=== PATIENT | female | born 1935 | race Caucasian/White ===

== ENCOUNTER 2017-11-15 20:42 | Observation (INO) | payer MEDICARE, OTHER ==
[2017-11-15] MEDS ORDERED: methylPREDNISolone SUCCINATE 125 MG/2 ML VIAL IVP STA (20:50)
[2017-11-15] MEDS ORDERED: diphenhydrAMINE INJ 50 MG/ML VIAL IVP STA (20:50)
--- NOTE | 2017-11-15 21:16 | ED Physician Documentation ---
PD HPI HEENT - Stated complaint Stated Complaint: SWOLLEN LIPS/TONGUE - Chief complaint Chief Complaint: Allergic Rx - History obtained from History obtained from: Patient, Friend - History of Present Illness Timing - onset: How many hours ago (4) Timing - details: Gradual onset, Still present Location: Mouth Associated symptoms: Facial swelling Similar symptoms before: Has not had sx before Recently seen: Not recently seen - Additional information Additional information: Patient is a 81 year old female with a history of htn on lisinopril who is presenting to the emergency department for tongue, face and lip swelling. patient states that the symptoms started about three hours ago. Patient called her neighbor who brought her in for evaluation. the swelling started on the right side of the face and has migrated over to the left side of the face. There is tongue involvement but no pooling of secretions. Review of Systems Constitutional: reports: Reviewed and negative Eyes: reports: Reviewed and negative Ears: reports: Reviewed and negative Throat: reports: Swollen tonsils, Other (facial and tongue swelling) Cardiac: denies: Chest pain / pressure, Palpitations Respiratory: denies: Dyspnea, Cough, Wheezing GI: denies: Nausea, Vomiting : reports: Reviewed and negative Skin: reports: Reviewed and negative Musculoskeletal: reports: Reviewed and negative Neurologic: denies: Headache Immunocompromised: denies: Immunocompromised PD PAST MEDICAL HISTORY - Past Medical History Past Medical History: Yes Cardiovascular: Hypertension, PR Other Past Medical History: dystonia - Past Surgical History Past Surgical History: Yes Cardiovascular: Coronary stent - Allergies Allergies/Adverse Reactions: Allergies Allergy/AdvReac Type Severity Reaction Status Date / Time lisinopril Allergy Edema Verified 11/15/17 20:50 - Social History Does the pt smoke?: No Smoking Status: Never smoker Does the pt drink ETOH?: Yes ETOH Use: Wine Does the pt have substance abuse?: No - Immunizations Immunizations are current?: No - POLST Patient has POLST: Yes PD ED PE NORMAL - General General: Alert and oriented X 3 - HEENT HEENT: Atraumatic, PERRL - Neck Neck: Supple, no meningeal sign - Cardiac Cardiac: RRR, No murmur - Respiratory Respiratory: No respiratory distress - Abdomen Abdomen: Soft - Derm Derm: Normal color, Warm and dry, No rash - Extremities Extremities: No deformity, No tenderness to palpate, Normal ROM s pain, No edema - Neuro Neuro: Alert and oriented X 3, No motor deficit, No sensory deficit, Normal speech Eye Opening: Spontaneous Motor: Obeys Commands Verbal: Oriented GCS Score: 15 - Psych Psych: Normal mood PD ED PE EXPANDED - HEENT HEENT: Other (swelling of upper lip and tongue. uvula partially visible) Results - Vitals Vitals: Vital Signs - 24 hr 11/15/17 11/15/17 20:44 21:12 Temperature 36.5 C Heart Rate 78 71 Respiratory 18 19 Rate Blood Pressure 173/89 H 168/81 H O2 Saturation 100 100 Oxygen O2 Source Room air - Labs Labs: Laboratory Tests 11/15/17 11/15/17 20:50 20:50 WBC 7.0 RBC 3.97 L Hgb 7.6 L Hct 24.7 L MCV 62.1 L MCH 19.1 L MCHC 30.7 L RDW 20.0 H Plt Count 342 MPV 6.9 L Manual Slide Review Indicated Sodium 121 L Potassium 4.3 Chloride 86 L Carbon Dioxide 23 Anion Gap 12.0 BUN 15 Creatinine 0.8 Estimated GFR (MDRD) 69 L Glucose 92 Calcium 9.3 PD MEDICAL DECISION MAKING - ED course Complexity details: reviewed old records, reviewed results, re-evaluated patient , considered differential, d/w patient, d/w managed services consultant ED course: Patient was seen immediately at bedside. IV access was gained. Even though the symptoms were symptoms were likely secondary to MAIDA inhibitors a trial of steroids and benadryl was given and ffp was ordered. Patient was maintaining her airway and was able to swallow her secretions. Hospitalist was contacted and the case was discussed with her. Patient was placed in observation. Departure - Departure Disposition: ED Place in Observation Clinical Impression: MAIDA inhibitor-aggravated angioedema Condition: Stable
[2017-11-15] MEDS ORDERED: HYDROcod/ACETAM 5/325 MG TABLET PO PRN (21:18)
[2017-11-15] MEDS ORDERED: ONDANSETRON ODT 4 MG TABLET TL PRN (21:18)
[2017-11-15] MEDS ORDERED: ACETAMINOPHEN 325 MG TABLET PO PRN (21:18)
[2017-11-15] MEDS ORDERED: SODIUM CHLORIDE FLUSH 0.9% 10 ML SYRINGE IVP PRN (21:18)
[2017-11-15 21:24] LABS: BASOPHILS # (AUTO) 0.1 10^3/uL (0.0-0.1); BASOPHILS % (AUTO) 1.6 %; EOSINOPHILS # (AUTO) 0.2 10^3/uL (0.0-0.7); EOSINOPHILS % (AUTO) 3.1 %; HGB - HEMOGLOBIN 7.6 g/dL (12.0-16.0); LYMPHOCYTES # (AUTO) 2.7 10^3/uL (1.5-3.5); LYMPHOCYTES % (AUTO) 38.5 %; MEAN CORPUSCULAR HEMOGLOBIN 19.1 pg (27.0-31.0); MEAN CORPUSCULAR HGB CONC 30.7 g/dL (32.0-36.0); MEAN CORPUSCULAR VOLUME 62.1 fL (81.0-99.0); MEAN PLATELET VOLUME 6.9 fL (7.9-10.8); MONOCYTES # (AUTO) 0.7 10^3/uL (0.0-1.0); MONOCYTES % (AUTO) 9.6 %; NEUTROPHILS # (AUTO) 3.3 10^3/uL (1.5-6.6); NEUTROPHILS % (AUTO) 47.2 %; PLT - PLATELET COUNT 342 10^3/uL (130-450); RED BLOOD COUNT 3.97 10^6/uL (4.20-5.40)
[2017-11-15 21:33] LABS: CALCIUM 9.3 mg/dL (8.5-10.3); CREATININE 0.8 mg/dL (0.4-1.0)
[2017-11-15 21:46] LABS: PLATELET ESTIMATE, MANUAL NORMAL (130-450,000) (NORMAL); PLATELET MORPHOLOGY NORMAL APPEARANCE (NORMAL)
[2017-11-15 22:23] LABS: MEAN RETIC VALUE 101.7; RED BLOOD COUNT 4.02 10^6/uL (4.20-5.40)
[2017-11-15] MEDS: FAMOTIDINE 20 MG TABLET PO SCH (22:27)
[2017-11-15] MEDS: SODIUM CHLORIDE FLUSH 0.9% 10 ML SYRINGE IVP SCH (22:31)
[2017-11-15 22:48] LABS: FERRITIN 12.3 ng/mL (11.0-306.8)
[2017-11-15 22:55] LABS: % IRON SATURATION 3 % (20-50); IRON 16 ug/dL (28-170); TOTAL IRON BINDING CAPACITY 500 ug/dL (250-450); TRANSFERRIN 357 mg/dL (192-382)
[2017-11-15] MEDS: amLODIPine 5 MG TABLET PO SCH (23:13)
--- NOTE | 2017-11-16 03:14 | HISTORY & PHYSICAL EXAMINATION ---
DATE OF SERVICE: Physician: Hoa Morelos MD DATE OF ADMISSION: 11/15/2017 PRIMARY CARE PROVIDER: Francisca Gonzales ADMITTING PROVIDER: Hoa Morelos MD CHIEF COMPLAINT: Swollen lips and tongue. HISTORY OF PRESENT ILLNESS: The patient is a delightful 81-year-old who still lives alone, and gets help from very good friends who live down the road. She is getting a little forgetful and they help with groceries, driving her around, but she is still independent with regard to activities of daily living, light straightener around her house, and cooking and cleaning. She has coronary artery disease, but is well maintained. She last saw her submarine advisory team watch officer 6 years ago when he put a stent in. She takes lisinopril for high blood pressure. Four hours prior to admission, she started developing lip and tongue swelling. She called her good friend, Rubén and his , and they brought her in for evaluation to the emergency room. The swelling of her lips started on the right side, and now includes all of her lips on the left side. The right side of her tongue is swollen. She says that while in the emergency room, she has actually improved a little bit, in that she could not bring her lower lip in to bring her upper teeth over it. She is now able to do so. At no time did she feel shortness of breath , inability to swallow, or drooling. She has never had any swelling of her ears, nasolabial fold, nares, or any part of her face prior to this. She has been on an MAIDA inhibitor for several years. In the emergency room, she was hypertensive, alert and oriented, with no respiratory distress. Her lips were very swollen and the right side of her tongue was involved with no respiratory compromise. Blood pressure was 173/89 initially, then down to 168/81. Although it was felt that she was having angioneurotic edema secondary to MAIDA inhibitors, she was given steroids and Benadryl, and FFP was ordered. They have not been given as of yet. We are placing her in observation because of tongue involvement. PAST MEDICAL HISTORY 1. Hypertension. 2. Coronary artery disease with MA in 1984. Return with unstable angina in 2011 to this emergency room, and she was airlifted and had a stent placed. She is followed by Colton Dhaliwal MD in [place] for this. 3. Chronic systolic congestive heart failure. 4. Dystonia. 5. G0, P0. ALLERGIES: NO KNOWN DRUG ALLERGIES UNTIL THIS LISINOPRIL TODAY. MEDICATIONS: Lisinopril 10 mg daily. SOCIAL HISTORY: She was born in [facility]. Spent the war in [place], then emmigrated to [place]. From [place], she came to the [place] in the mid . She has been twice, both husbands are . [place] She does not have good memories of [facility] because of that event. She has no history of alcohol abuse. She states that she was a social smoker and smoked probably 1 pack a month until the early . She currently lives in her own home, independent living, with help from Rubén and his who are good friends. They met one day over a decade ago when her car broke down and they helped her on her way. Code status is DO NOT RESUSCITATE/DO NOT INTUBATE. However, she asked that if she were to change her mind at the last second, would she will be allowed to do so, and I said yes. FAMILY HISTORY: Parents had emmigrated to [place] with her and of old age , but she also feels that the poor [facility] system contributed to their early demise. Although she states that she has siblings and lives in [facility], she does not believe it. She says that everyone in [facility] thinks that if you live in [place] you are rich, so there are too many relatives that claim her and she does not believe they are relatives. She has never had children. She denies any problems with high blood pressure, cancer, cholesterol , mental illness, thyroid, diabetes in her parents. REVIEW OF SYSTEMS CONSTITUTIONAL: Without any recent changes in appetite, unexpected weight changes, fevers or sweats. HEAD AND NECK: She has had a history of cataracts that have been removed. Slightly deaf. No problems with swallowing, facial dysesthesia, or dysphagia until today's episode of lip swelling. PULMONARY: Denies coughing, wheezing, asthma, allergies. CARDIAC: While she remembers having a heart attack and the stent, she initially denies having congestive heart failure, and it is her friend Rubén that gently reminds her that she carries that diagnosis. She denies any recent change in cardiovascular endurance. She is relatively sedentary. It is too hard for her to get up and down into the garden, so she is able to do things like change the sheets on her bed, 1 or 2 loads of laundry slowly, and cook for herself. She denies any change in that status. No edema. No orthopnea. No angina. No palpitations. GASTROINTESTINAL: Denies rectal bleeding, abdominal pain, change in bowel habits. GENITOURINARY: Denies urgency, frequency, dysuria, incontinence or flank pain. JOINTS: The same as always. She shrugs and says that she is stiff in the morning, and it takes a while for her to loosen up, but that is unchanged. No joint edema. No new joint pain. SKIN: Denies new rashes or lesions. PSYCHIATRIC: Denies depression, hallucinations. CENTRAL NERVOUS SYSTEM: She initially denies memory loss, but Rubén says that it is starting to happen. For instance, she says that she drove last week, and he says it has been months since she has driven. She has no history of seizures, falls, but does have quite a bit of vertigo and has to use the shields for balance. No history of strokes. PHYSICAL EXAMINATION She is seen in the emergency room with her friend, Rubén, at the bedside. VITAL SIGNS: Temperature is 36.5, pulse is 71, repeat blood pressure is 168/81 , respirations 19, and 100% on room air. GENERAL: She is a short statured, slender, elderly female who has a slight stuttering speech pattern, but is otherwise alert and cooperative. HEAD AND NECK: Remarkable for the severe edema of upper and lower lips on both sides. The right side of her tongue is quite swollen, but there is no dysphonia, no drooling, no stridor. Pupils are reactive. Sclerae are nonicteric. Neck is supple. No goiter or bruits. LUNGS: Clear to auscultation and percussion, and there is no increased respiratory effort talking to me. Again, no stridor in her neck. No crackles, rhonchi or wheezing. HEART: PMI is normally placed with a regular rate and rhythm, and a soft systolic murmur at the left lower sternal border, nonradiating. ABDOMEN: Soft, nontender. Normal bowel sounds. No rebound or guarding. No masses. EXTREMITIES: Warm without clubbing, cyanosis, or edema. She does have cankles , but not severely so. Nonpitting. Good foot pulses. NEUROLOGIC: She is oriented to person, place and time. Vague about dates, some memory issues, but otherwise very lucid. She follows 1-step commands. Need to repeat it a couple of times for her to process at the request. No tremors. Upper and lower extremity strength testing is normal in this tiny, frail, elderly female. LABORATORY DATA: Sodium is 121. She appears to have chronic hyponatremia. She was 125 in June 2014 and 126 in February 2015. Potassium is normal at 4.3, BUN 15, creatinine 0.8, random glucose 92. White cell count is 7, hemoglobin is low at 7.6. Hematocrit 24.7, MCV 62. Hemoglobin was 10 in February 2015 and 31 hematocrit. Platelets are normal. ASSESSMENT/PLAN 1. Angioneurotic edema. Placed in observation because of the tongue swelling. I agree with Dr. yDe. She has been given Benadryl and steroids, and minimal response, but nevertheless they should have been given in case our diagnosis is incorrect. FFP has been ordered. Other causes of angioneurotic edema besides MAIDA inhibitors will need to be evaluated if she continues having reactions down the road. I did warn her that you can still have angioneurotic edema from MAIDA inhibitors months after the event , and only time will tell. I am attesting that I am admitting this patient for less than 96 hours. She is going to be observation status and, as such, I plan no greater than 1 midnight. If, however, she is here at 96 hours, she will be evaluated for possible transfer or discharge. 2. History of coronary artery disease, congestive heart failure. At this time, there is no decompensation. There is no angina. She does not even take medicines in the outpatient status. I hesitate to start an ARB and betablocker without verifying the status of her ventricle. She also describes a stable cardiovascular state without change for 6 years. As such, other than to address her blood pressure, will let her PCP or submarine advisory team watch officer address this in the outpatient setting when needed. 3. Microcytic anemia. Appears chronic and slowly worsening. We will do iron studies. Check stool for fecal occult blood testing if she has a bowel movement while here. She is not hypoxic, not hypotensive, and as such compensating well with this anemia. I would recommend that she be followed on a monthly basis for CBC and transfuse when she drops below 7. She does not remember having a colonoscopy of having a GI workup for anemia. She denies any change in bowel habits on review of systems and also denies weight loss. It would be up to her primary care provider and the patient to decide if ongoing workup should occur. 4. Hypertension. Will need to be off MAIDA inhibitor because of the angioneurotic edema. Change to Norvasc. Start at 5 mg p.o. daily. Watch for worsening edema in a patient who already has cankles. 5. DO NOT RESUSCITATE/DO NOT INTUBATE status. 6. Deep venous thrombosis prophylaxis will be none at this time. The patient is ambulatory. We will encourage ambulation. She is at low risk for DVT. TD: 11/16/2017 04:13 JAMES
[2017-11-16] MEDS: SODIUM CHLORIDE FLUSH 0.9% 10 ML SYRINGE IVP SCH (05:49)
--- NOTE | 2017-11-16 06:56 | Discharge Plan ---
Discharge Plan Disposition: 01 Home, Self Care Condition: Stable Prescriptions: amLODIPine [Norvasc] 5 mg PO DAILY #30 tablet Diet: Regular Activity Restrictions: Activity as Tolerated Shower Restrictions: No Driving Restrictions: Yes (limit driving) Instruction Topics: ED Angioedema Additional Instructions or Follow Up instructions: You were placed under observation because of a reaction called angioneurotic edema induced by your blood pressure drug, lisinopril. It can suddenly cause swelling of any part of your body. It is NOT and allergy reaction and can be difficult to treat. Since it involved your tongue, I felt it prudent to observe your breathing, swallowing and ability to speak overnight. I am stopping your lisinopril. But you need a blood pressure drug and I have written a presciption for norvasc/amlodipine for you to fill at your pharmacy. I have also found that you are severely anemic. It seems to be an iron deficiency anemia. Normal amount of blood for a woman is 12-14 grams of hemoglobin. You are at 7. Please speak to your primary care provider about getting a blood pressure evaluation on your new blood pressure pill and also see if you need further workup of your anemia. The anemia is very important and will need a repeat blood check in the next few days to weeks. Once you have a level less than 7 grams of hemoglobin you will need a transfusion. No Smoking: If you smoke, Please STOP! Call for help. Follow-up with: Anila Gonzales PA-C [Primary Care Provider] -
[2017-11-16 07:59] VITALS: BP 139/67
[2017-11-16] MEDS: FAMOTIDINE 20 MG TABLET PO SCH (08:44)
[2017-11-16] MEDS: amLODIPine 5 MG TABLET PO SCH (08:44)
[2017-11-16] MEDS ORDERED: POLYETHYLENE GLYCOL 3350 17 GM PACKET PO SCH (09:00)
--- NOTE | 2017-12-10 06:41 | DISCHARGE SUMMARY ---
Physician: Hoa Morelos MD DATE OF ADMISSION: 11/15/2017 DATE OF DISCHARGE: 11/16/2017 DISCHARGE DIAGNOSES 1. Angioneurotic edema. 2. History of coronary artery disease. 3. History of diastolic congestive heart failure. 4. Microcytic anemia. 5. Hypertension. MEDICATIONS AT DISCHARGE 1. Norvasc 5 mg daily (new prescription). 2. Omeprazole 20 mg daily. 3. Inderal-LA 80 mg daily. 4. Simvastatin 20 mg q.p.m. PRINCIPAL PROCEDURES: None. HOSPITAL COURSE: Please refer to the detailed history and physical. Essentially, this laila elderly woman was brought in for angioneurotic edema. Because it involved her tongue and was not improving in the emergency room, it was felt prudent to observe her overnight in case her tongue swelling got worse. Her angioneurotic edema is attributed to MAIDA inhibitor and that was discontinued. Norvasc was started for blood pressure and her MAIDA inhibitor was discontinued. Other medical issues noted during her stay was a microcytic anemia that has been chronic but gradually worsening. Her coronary artery disease history and congestive heart failure history were taken into account during her stay and she remained stable with regard to no new decompensation. In the outpatient setting, she may or may not be a candidate for echocardiogram and workup of her microcytic anemia. However, in view of her age of 82, she and her primary care provider may take a more conservative status with regards to aggressive workup. After observation overnight, the patient remained stable with regards to her breathing patterns. Tongue gradually returned to normal and speech patterns were normal. She still had a swollen lip on either side, but the tongue was much improved. Temperature was 36.4, pulse 71, blood pressure 139/67, respirations 18, 100% on room air. A delightful, alert, elderly woman with a continued swelling of her lips, but the resolution of swelling of her tongue. Lungs were clear. Regular rate and rhythm with a systolic murmur at the left lower sternal border. The abdomen is soft and nontender, and the feet have no edema. I would recommend the patient be monitored for her CBCs. Arrange for elective transfusion if her hemoglobin drops below 7. At this time, with hemoglobin of 7.6, she appears well compensated in spite of her coronary artery disease history. Retic count was 0.46. LDH was 142. B12 was 390. Ferritin was 12.3. Iron was quite low at 16. TIBC was high at 500. Percent saturation low at 3. She is asked to make sure that she sees Anila Gonzales, her primary care provider, in followup. I have explained to her that sometimes angioneurotic edema can occur weeks to months even after she stopped the lisinopril. If it occurs and it involves her tongue, breathing, please come back to the emergency room. Sometimes it only occurs in the eyelids, lips, ears or part of her face and that is not nearly as dangerous. I explained this more to reassure her in case she has another episode down the road. TD: 12/10/2017 06:28
== END 2017-11-16 10:00 | disposition home or self-care (01) ==
LOC: ED 20:42 → OBS 21:18
PROVIDERS: ADMIT Specialist; ATTEND Specialist
DX: T78.3XXA Angioneurotic edema, initial encounter (principal); T46.4X5A Adverse effect of angiotensin-converting-enzyme inhibitors, initial encounter; I11.0 Hypertensive heart disease with heart failure; I50.30 Unspecified diastolic (congestive) heart failure; D50.9 Iron deficiency anemia, unspecified; G24.9 Dystonia, unspecified; I25.10 Atherosclerotic heart disease of native coronary artery without angina pectoris; Z66 Do not resuscitate; Z95.5 Presence of coronary angioplasty implant and graft; I25.2 Old myocardial infarction; Z87.891 Personal history of nicotine dependence; Z79.899 Other long term (current) drug therapy
CPT/HCPCS: 36415; 36430; 80048; 82607; 82728; 83540; 83615; 84466; 85025; 85044; 86900; 86901; 96374; 99283; 99284; A9270; G0378; P9017; 82270